=== PATIENT | female | born 1985 | race Caucasian/White ===

== ENCOUNTER 2022-03-02 23:42 | Emergency (ER) | payer BC, SELFPAY ==
[2022-03-03 00:30] VITALS: BP 122/92; PULSE 82; RESP 18; TEMP 36.6; O2SAT 99; BMI 33.1
[2022-03-03 01:05] LABS: Microscopic, Urine URINE MICROSCOPIC (MICROSCOPIC)
[2022-03-03 01:08] LABS: Appearance,Urine CLEAR (Clear); Bilirubin,Urine Negative (Negative); Blood, Urine Negative (Negative); Color,Urine YELLOW (Yellow); Glucose,Urine (UA) Negative (Negative); Ketones,Urine Negative (Negative); Leukocyte Esterase,Urine Negative (Negative); Nitrate,Urine Negative (Negative); Protein,Urine Negative (Negative); Specific Gravity, Urine 1.015 (1.005-1.030); Urobilinogen,Urine 0.2 EU/dl (0.2)
[2022-03-03 01:13] LABS: Alanine Aminotransferase 22 U/L (12-78); Albumin Level 4.4 g/dl (3.5-5.0); Albumin/Globulin Ratio 1.6 (1.1-1.8); Alkaline Phosphatase 89 U/L (38-126); Anion Gap 9.9 mEq/L (5-15); Aspartate Amino Transferase 28 U/L (14-36); Basophils # 0.1 K/mm3 (0-0.2); Bilirubin,Total 0.2 mg/dl (0.2-1.3); Blood Urea Nitrogen 12 mg/dl (7-17); Calcium 9.7 mg/dl (8.4-10.2); Carbon Dioxide 32 mmol/L (22.0-30.0); Chloride 102 mmol/L (98-107); Creatinine Clearance Estimated 177 mL/min (50-200); Eosinophils # 0.2 K/mm3 (0.0-0.4); Estimated Glomerular Filt Rate 112 ml/min (>60); GFR (African American) 136 ML/MIN (>60); Globulin 2.8 g/dL (1.3-3.2); Glucose 119 mg/dl (74-100); Hematocrit 41.5 % (37.0-47.0); Hemoglobin 13.6 g/dL (12.2-16.2); Lymphocytes # 2.6 K/mm3 (0.7-4.5); Lymphocytes % 29.9 % (10-50); Mean Corpuscular HGB Conc 32.7 g/dL (31.8-35.4); Mean Corpuscular Volume 85.8 fl (81-99); Mean Platelet Volume 8.1 fl (7.4-10.4); Monocytes # 0.4 K/mm3 (0.1-1.0); Monocytes % 4.1 % (1.7-9.3); Neutrophils # 5.5 K/mm3 (1.8-7.8); Neutrophils % 63.1 % (37.0-80.0); Platelet Count 285 K/mm3 (142-424); Potassium 3.9 mmoL/L (3.5-5.1); Red Blood Count 4.84 M/mm3 (4.20-5.40); Red Cell Distribution Width 13.7 % (11.5-17.5); Sodium 140 mmol/L (136-145); Total Protein,Serum 7.2 g/dl (6.3-8.2); White Blood Count 8.6 K/mm3 (4.8-10.8)
[2022-03-03 01:24] LABS: Amorphous Sediment,Urine 1+ /lpf; Bacteria,Urine 2+ /lpf; Mucus,Urine 1+ /lpf
--- NOTE | 2022-03-03 01:38 | HMH.EDGENADL ---
Discharge Plan Disposition Patient Disposition: Home, Self-Care Prescriptions Prescriptions: New prednisone [prednisone] 20 mg tablet 20 mg PO BID Qty: 10 0RF No Action citalopram 40 mg tablet 40 mg PO DAILY sumatriptan succinate 50 mg tablet 50 mg PO DIRECTED lisinopril 10 mg tablet 10 mg PO DAILY hydroxyzine pamoate 25 mg capsule 25 mg PO TIDP PRN (Reason: anxitey) Label Comments: TAKE 1 CAPSULE BY MOUTH THREE TIMES A DAY NEEDED Referrals Follow up/Referrals: Jenny Dalton DO [Primary Care Provider] - See instructions Clinical Impressions Clinical Impression: Lumbar back pain Instructions Patient Instructions: DI for Low Back Pain Discharge ED Provider: Jayy Crocker General Adult HPI General Chief complaint: PAIN Stated complaint: Left side pain Time Seen by Provider: 03/03/22 01:39 Mode of Arrival: Family Vehicle Source of Information: Patient and Medical Record Limitations: No Limitations Description of Symptoms (Recalled from ER Triage Doc. by RN): Pt c/o L sided mid to lower back pain mari began a few days ago but greatly worsened tonight. Denies any n/v/d, fever, or chills. States she does have a hx of kidney stones. Pt noted her low back hurting a few days ago and that it initally radiated down her LLE. 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 Denies any numbness, tingling, or loss of bladder or bowel. History of Present Illness HPI narrative: acute lt sided back pain w/o fever or rash and no trauma - no cauda equina sx - Onset (ago): day(s) Location: back Severity: moderate Quality: aching Consistency: intermittent Associated symptoms: denies other symptoms Related Data Home Medications Medication Instructions Recorded Confirmed citalopram 40 mg tablet 40 mg PO DAILY Depression 03/03/22 03/03/22 hydroxyzine pamoate 25 mg capsule 25 mg PO TIDP PRN anxitey 03/03/22 03/03/22 lisinopril 10 mg tablet 10 mg PO DAILY High blood pressure 03/03/22 03/03/22 sumatriptan succinate 50 mg tablet 50 mg PO DIRECTED migraine 03/03/22 03/03/22 Previous Rx's Medication Instructions Recorded prednisone 20 mg tablet 20 mg PO BID #10 tabs 03/03/22 Allergies Allergy/AdvReac Type Severity Reaction Status Date / Time No Known Allergies Allergy Verified 03/03/22 00:57 [facility] Disclaimer: The information contained in this section may have been updated after the patient was seen, as this information can be updated by other users. Social History Smoking Status: Never smoker alcohol intake: never current occupational status: employed Travel in the last 8 weeks: None ROS Obtained: Yes All systems reviewed & no additional complaints except as documented Physical Exam General General appearance: alert Head Head exam: normocephalic Eye Eye exam: Present PERRL and EOMI ENT ENT exam: Present mucous membranes moist Neck Neck exam: Present trachea midline Respiratory Respiratory exam: Absent respiratory distress Cardiovascular Cardiovascular exam: Present regular rate Abdominal Exam Abdominal exam: Present soft; Absent tenderness Extremities Exam Extremities exam: Present full ROM Back Exam Back exam: Present tenderness and paraspinal tenderness; Absent full ROM, CVA tenderness (R), CVA tenderness (L), vertebral tenderness or straight leg raise (L) Neurological Exam Neurological exam: Present alert, oriented X3 and CN II-XII intact Psychiatric Psychiatric exam: Present normal affect Skin Skin exam: Absent rash Medical Decision Making Medical Records Medical records reviewed: Yes I reviewed the patient's medical records. Giovanni Inquiry Pt receiving controlled substance: No Vital Signs: 03/03/22 00:30 03/03/22 04:13 03/03/22 04:13 Temperature 97.9 F 98.2 F Temperature Source Oral Oral Pulse Rate 72 Pulse Rate [Right] 82 Respiratory Rate 18 16 Blood Pressure 120/7
--- NOTE | 2022-03-03 01:39 | XR_ITS ---
PROCEDURE INFORMATION: Exam: XR Chest Exam date and time: 03/03/2022 1:40 AM Age: 36 years old Clinical indication: Pain; Other: L flank; Additional info: Flank pain TECHNIQUE: Imaging protocol: Radiologic exam of the chest. Views: 1 view. COMPARISON: No relevant prior studies available. FINDINGS: Lungs: Low lung volumes. There is mild patchy opacification in the perihilar regions which may reflect perihilar atelectasis. Pleural spaces: Unremarkable. No pleural effusion. No pneumothorax. Heart/Mediastinum: Cardiac silhouette is normal. Bones/joints: Unremarkable. IMPRESSION: 1. Cardiac silhouette is normal. 2. Low lung volumes. 3. There is mild patchy opacification in the perihilar regions which may reflect perihilar atelectasis.
--- NOTE | 2022-03-03 01:39 | CT_ITS ---
PROCEDURE INFORMATION: Exam: CT Abdomen And Pelvis With Contrast Exam date and time: 03/03/2022 1:56 AM Age: 36 years old Clinical indication: Abdominal pain; Left; Prior surgery; Surgery type: Hysterectomy; Patient HX: C/O flank pain for several days; Additional info: L flank pain TECHNIQUE: Imaging protocol: Computed tomography of the abdomen and pelvis with contrast. Radiation optimization: All CT scans at this facility use at least one of these dose optimization techniques: automated exposure control; mA and/or kV adjustment per patient size (includes targeted exams where dose is matched to clinical indication); or iterative reconstruction. Contrast material: ISOVUE; Contrast volume: 75 ml; Contrast route: IV; COMPARISON: CT LUMBAR SPINE WO CON 03/03/2022 1:53 AM FINDINGS: Liver: Normal. No mass. Gallbladder and bile ducts: Normal. No calcified stones. No ductal dilation. Pancreas: Normal. No ductal dilation. Spleen: Normal. No splenomegaly. Adrenal glands: Normal. No mass. Kidneys and ureters: Small bilateral non-obstructing renal stones. No hydronephrosis or perinephric fluid collections. Stomach and bowel: Unremarkable. No obstruction. No mucosal thickening. Appendix: No evidence of appendicitis. Intraperitoneal space: Unremarkable. No free air. No significant fluid collection. Vasculature: Unremarkable. No abdominal aortic aneurysm. Lymph nodes: Unremarkable. No enlarged lymph nodes. Urinary bladder: Unremarkable as visualized. Reproductive: Unremarkable as visualized. Bones/joints: Disc space narrowing at L5-S1 vacuum disc phenomenon and mild osteophytic spurring. Soft tissues: Unremarkable. IMPRESSION: 1. No free air or fluid or adenopathy. 2. Small bilateral non-obstructing renal stones. 3. No hydronephrosis or perinephric fluid collections. 4. Other (less critical/noncritical/incidental) findings as above; please refer to the body of report for further details.
--- NOTE | 2022-03-03 01:39 | CT_ITS ---
PROCEDURE INFORMATION: Exam: CT Lumbar Spine Without Contrast Exam date and time: 03/03/2022 1:53 AM Age: 36 years old Clinical indication: Patient HX: C/O low back pain, nki; Additional info: L lower back pain TECHNIQUE: Imaging protocol: Computed tomography of the lumbar spine without contrast. Radiation optimization: All CT scans at this facility use at least one of these dose optimization techniques: automated exposure control; mA and/or kV adjustment per patient size (includes targeted exams where dose is matched to clinical indication); or iterative reconstruction. COMPARISON: No relevant prior studies available. FINDINGS: Bones/joints: Spine alignment is normal. No fracture or bone destruction. Disc space narrowing at L5-S1 with vacuum disc phenomena and osteophytic spurring . Kidneys and ureters: Small bilateral non-obstructing renal stones Soft tissues: Unremarkable. IMPRESSION: 1. Spine alignment is normal. 2. No fracture or bone destruction. 3. Disc space narrowing at L5-S1 with vacuum disc phenomena and osteophytic spurring . 4. Small bilateral non-obstructing renal stones
[2022-03-03 02:24] LABS: Procalcitonin < 0.030 ng/mL (0.0-2.0)
[2022-03-03 02:26] LABS: Erythrocyte Sedimentation Rate 16 mm/hr (0-20)
[2022-03-03 04:13] VITALS: BP 120/75; PULSE 72; RESP 16; TEMP 36.8; O2SAT 98
== END 2022-03-03 05:31 | disposition home or self-care (01) ==
PROVIDERS: Emergency Provider Emergency Medicine; PCP Student in an Organized Health Care Education/Training Program
DX: R10.32 Left lower quadrant pain (principal); M54.50 Low back pain, unspecified; F41.9 Anxiety disorder, unspecified; Z79.52 Long term (current) use of systemic steroids; Z79.899 Other long term (current) drug therapy; Z87.442 Personal history of urinary calculi
CPT/HCPCS: 71045; 72131; 74177; 80053; 81001; 84145; 85025; 85651; 86140; 87086; 96361; 96374; 96375; 99285; J2405; Q9967

== ENCOUNTER 2022-12-02 04:23 | Emergency (ER) | payer BC, SELFPAY ==
[2022-12-02] VITALS (8 sets, daily range): BP systolic 131–169; BP diastolic 90–106; PULSE 64–93; RESP 14–20; TEMP 36.5; O2SAT 97–99; BMI 32.9
--- NOTE | 2022-12-02 04:48 | HMH.EDGENADL ---
Discharge Plan Disposition Patient Disposition: Home, Self-Care Condition: Good Prescriptions Prescriptions: New hydroxyzine pamoate 50 mg capsule 50 mg PO Q8H PRN (Reason: anxiety) Qty: 20 0RF No Action citalopram 40 mg tablet 40 mg PO DAILY sumatriptan succinate 50 mg tablet 50 mg PO DIRECTED lisinopril 10 mg tablet 10 mg PO DAILY hydroxyzine pamoate 25 mg capsule 25 mg PO TIDP PRN (Reason: anxitey) Patient Comments: TAKE 1 CAPSULE BY MOUTH THREE TIMES A DAY NEEDED prednisone [prednisone] 20 mg tablet 20 mg PO BID Qty: 10 0RF Referrals Follow up/Referrals: Adri Rowley [Primary Care Provider] - See instructions Activity Restrictions/Add. Instructions Additional Instructions/Restrictions: You were evaluated in the emergency department today for headache and anxiety. You have been prescribed hydroxyzine as needed for anxiety. Please pick this up and take it as directed. Be aware that this medication may make you sleepy, do not drive after taking it initially until you know how it affects you. Make an appointment with your primary care physician for 2 to 3 days from now for reevaluation and to discuss long-term anxiety management. Return to the emergency department with any new or worsening symptoms. Clinical Impressions Clinical Impression: Anxiety, Headache Discharge ED Provider: Guero Navarro Adult HPI General Chief complaint: Headache Stated complaint: poss high blood pressure, anxiety Time Seen by Provider: 12/02/22 04:33 Mode of Arrival: Ambulatory Source of Information: Patient Limitations: No Limitations Description of Symptoms (Recalled from ER Triage Doc. by RN): Patient reports headache that started yesterday and has worsened. States that she feels her blood pressure was up and that she was experiencing high anxiety/possible panic attack, diagnosed with anxiety over a year ago and reports high stress at home. Took ibuprofen at 0130. History of Present Illness HPI narrative: This 37-year-old female with a history of anxiety presents to the emergency department with headache, anxiety, possible panic attack. Patient states that she has a history of anxiety and recently stress at work and home have increased dramatically. She states she is having a headache that feels like pressure all over the head. She denies any weakness or vision changes. She states that she feels like her blood pressure is high due to stress. She states she took ibuprofen around 130 this morning without improvement of symptoms. She also endorses mild nausea. She is not having vomiting. Patient states about a year ago she was on an antianxiety medication but was able to come off of it. She states since that time her stress has increased again and she thinks she needs to be back on something but has not had time to get into her primary care physician. She is tearful and states she is overwhelmed but denies suicidal or homicidal ideation. Review of systems otherwise negative. Related Data Home Medications Medication Instructions Recorded Confirmed citalopram 40 mg tablet 40 mg PO DAILY Depression 03/03/22 03/03/22 hydroxyzine pamoate 25 mg capsule 25 mg PO TIDP PRN anxitey 03/03/22 03/03/22 lisinopril 10 mg tablet 10 mg PO DAILY High blood pressure 03/03/22 03/03/22 sumatriptan succinate 50 mg tablet 50 mg PO DIRECTED migraine 03/03/22 03/03/22 Previous Rx's Medication Instructions Recorded prednisone 20 mg tablet 20 mg PO BID #10 tabs 03/03/22 hydroxyzine pamoate 50 mg capsule 50 mg PO Q8H PRN anxiety #20 caps 12/02/22 Allergies Allergy/AdvReac Type Severity Reaction Status Date / Time No Known Allergies Allergy Verified 03/03/22 00:57 [facility] Disclaimer: The information contained in this section may have been updated after the patient was seen, as this information can be updated by other users. Social History (Updated 03/03/22 @ 05:21 by Gregorio
--- NOTE | 2022-12-02 04:49 | ECG_ITS ---
APPROVED REPORT Exam: Resting ECG HR:66 bpm ECG Measurements Heart Rate 66 AXES WI 167 P 33 QRSd 83 QRS 33 QT 385 T 42 QTc 399 Conclusion SINUS RHYTHM NORMAL ECG UNCONFIRMED REPORT Electronically signed by : Jaquan Pickard MD 12/02/2022 17:17:35
--- NOTE | 2022-12-02 04:55 | PC.NURSE ---
Cardiac monitoring initiated. Normal sinus rhythm noted rate of 82.
== END 2022-12-02 07:05 | disposition home or self-care (01) ==
PROVIDERS: Emergency Provider Emergency Medicine; PCP Nurse Practitioner
DX: R51.9 Headache, unspecified (principal); F41.9 Anxiety disorder, unspecified
CPT/HCPCS: 93005; 96361; 96374; 99285; J1790